=== PATIENT | male | born 1985 | race Caucasian/White ===

== ENCOUNTER 2020-02-26 02:47 | Outpatient (CLI) | payer MEDICARE, MEDICAID, SELFPAY ==
[2020-02-26 08:12] LABS: CREATININE 1.97 mg/dL (0.70-1.30); Estimated GFR 38.88 (mL/min/1.73m2); Potassium 3.9 mmol/L (3.5-5.1)
== END 2020-02-26 03:07 ==
PROVIDERS: Visit Provider Internal Medicine Nephrology
DX: N17.0 Acute kidney failure with tubular necrosis (principal)
CPT/HCPCS: 36415; 82565; 84132